=== PATIENT | male | born 1970 | race Caucasian/White ===

== ENCOUNTER → 2016-05-04 | Outpatient (CLI) | payer BC ==
--- NOTE | 2016-05-04 15:48 | DI ---
XR L-SPINE MIN 4 VW,05/04/2016 3:14 PM: Clinical History: Midline low back pain Previous Exam: October 18, 2015 Findings: AP, lateral, flexion and extension views of the lumbar spine are obtained, and demonstrate anatomic a lignment without fractures. There is no evidence of compression deformity. There is no loss of intervertebral disc height. There are no pathologic calcifications. A nonobstructive bowel gas pattern is seen. Impression: No fractures.
== END ==
LOC: MOB RAD 15:18
PROVIDERS: ATTEND Physician Assistant Medical
DX: M54.5 Low back pain (principal)
CPT/HCPCS: 72110

== ENCOUNTER 2017-02-15 11:25 | Inpatient (IN) ==
[2017-02-15] MEDS ORDERED: NORMAL SALINE 10 ML SYRINGE FLUSH IVP PRN (13:20)
[2017-02-15] MEDS ORDERED: ONDANSETRON 4 MG/2 ML VIAL IVP PRN (13:20)
[2017-02-15] MEDS ORDERED: CALCIUM CARBONATE 500 MG (TUMS) CHEWABLE TABLET PO PRN (13:20)
[2017-02-15] MEDS ORDERED: LIDOCAINE W/ SODIUM BICARB 0.5 ML SYR SUBD PRN (13:20)
[2017-02-15] MEDS ORDERED: Sodium Chloride 3% 500 ML PRIMARY IV SCH (13:30)
--- NOTE | 2017-02-15 13:46 | PDOC ---
HPI - History of Present Illness Date of Service: 02/15/17 Time of Service: 13:30 Chief Complaint: Dizziness, lightheadedness, increased leg swelling History of Present Illness: This is a 46 years old male with medical history significant for history of nephrotic syndrome, hypertension who presented to the clinic today for evaluation because of some lightheadedness and edema in his legs. He said he was diagnosed with nephrotic syndrome about 6 weeks ago. 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 his weight is less than what it was about 6 weeks ago. he went to see his physician a week ago they cut back on the dosage of the Lasix from 80 twice a day to 40 twice a day for the last 2 days he think his swelling was getting worse so he went back to 80 mg twice a day. he ss Having Some Lightheadedness and Dizziness but Denied Nausea or Vomiting. Has Some Salt Craving. He Admitted to Drinking Significant Amounts of Free Water but He Said He's Been Doing That for Years He Drinks May Be Sometimes he drinks 400 onuses of Water a day He Thinks He is Been Drinking Maybe like 150 - 200 Ounces of Water a Day the last two weeks. He was diagnosed on the and was put on Paxil. Lab studies on the clinic showed the sodium of 114 and hence the admission. Past Medical History Medical History: 1. Nephrotic syndrome, he said like he had a kidney biopsy about 4 weeks ago and the he thinks he had focal segmental glomerulosclerosis, they put him on high-dose steroid then. 2. Bipolar disorder, was more anxious about a week ago and they put him on Paxil on February 04. 3. Hypertension Surgical History: No surgeries before Pertinent Family History: Unknown he is adopted Past Social History: He doesn't smoke, doesn't drink, he did admits to using marijuana but he quits about 2 weeks ago Tobacco Use: Never Smoker In the Past 12 Months, Have Used or Abuse Any of the Following Substance: Marijuana Alcohol Use: None Medication / Allergies Home Medications: Home Medications Medication Instructions Recorded Confirmed Type furosemide 40 mg tablet 40 mg PO BID #60 tab 01/07/17 02/15/17 Rx lisinopril 10 mg tablet 40 mg PO BID #30 tab 02/04/17 02/15/17 Rx paroxetine ER 25 mg 25 mg PO QAM #30 tab 02/04/17 02/15/17 Rx tablet,extended release 24 hr Prednisone 60 mg PO DAILY 02/15/17 02/15/17 History Allergies/Adverse Reactions: Allergies 3 Allergy/AdvReac Type Severity Reaction Status Date / Time No Known Drug Allergies Allergy NOT Verified 02/15/17 13:46 APPLICABLE Review of Systems - Review of Systems All Systems: Reviewed & No Additional Complaints Except as Stated Exam - Vitals Vital Signs: Vital Signs Temperature 97.8 F Temperature Source Temporal Artery Scan Pulse Rate [Pulse Oximeter] 95 Respiratory Rate 20 Blood Pressure [Left Arm] 131/88 Pulse Ox 97 Oxygen Delivery Method Room Air Height 6 ft Weight 208 lb - General General Appearance: No Acute Distress, Cooperative - Head Head Exam: Normal Inspection, Atraumatic - Eye Eye Exam: POSITIVE: Normal Appearance - ENT ENT Exam: POSITIVE: Normal Exam - Neck Neck Exam: Normal Inspection - Respiratory Respiratory Exam: POSITIVE: Clear to Auscultation - Bilaterally - Cardiovascular Cardiovascular Exam: POSITIVE: RRR - GI/Abdominal GI/Abdominal Exam: POSITIVE: Normal Bowel Sounds, Non Tender, Non Distended, Soft, No Organomegaly Additional GI/Abdominal Exam Details: Soft nodule felt in the middle of the abdomen. About 2 cm nontender. He said he had it for more than 5 years and no change in in size. He was told this is a lymph node. - Rectal Rectal Exam: POSITIVE: Deferred - External Exam: POSITIVE: Deferred - Extremities Additional Extremities Exam Details: Bilateral leg edema noted up to the thigh - Back Back Exam: POSITIVE: Normal Inspection - Neurological Neurological Exam: POSITIVE: Alert, Oriented x 3, Normal Gait, CN II-XII Intact , No Facial Droop, Speech Intact / Clear, Moves All Extremities Equally - Psychiatric Psychiatric Exam: POSITIVE: Normal Affect - Integumentary Integumentary Exam: POSITIVE: Normal Color Results - Labs CBC and BMP: 02/15/17 14:14 Assessment and Plan - Patient Problems (1) Nephrotic syndrome Current Visit: No Status: Acute Comment: Continue the steroid continue the lisinopril. We'll hold on the Lasix for today. Code(s): N04.9 - Nephrotic syndrome with unspecified morphologic changes (2) Hyponatremia Current Visit: Yes Status: Acute Comment: He has severe hyponatremia. I would consider his symptoms are mild. he Has some lightheadedness. I think will use a hypertonic sodium will repeat his labs to ensure gradual rise in the sodium. hard to say whether this is acute or chronic but I suspect this may be related to the Paxil. We'll DC the Paxil. The other possibility is that his excessive intake of free water in the coupled with high dosage of the Lasix maybe that's also causing the hyponatremia. I think we'll hold the Lasix DC the Paxil give him hypertonic C saline and repeat the labs and will go from there. Code(s): E87.1 - Hypo-osmolality and hyponatremia
[2017-02-15 14:36] LABS: Hematocrit [HCT] 44.7 % (42.0-52.0); Hemoglobin [HGB] 15.6 g/dL (14.0-18.0); MEAN CORPUSCULAR VOLUME 91 FL (80-90); RED BLOOD COUNT 4.91 10^6/uL (4.70-6.10)
[2017-02-15 14:37] LABS: MEAN CORPUSCULAR HEMOGLOBIN 31.8 PG (27-31); MEAN PLATELET VOLUME 6.9 FL (7.4-12.2)
[2017-02-15 14:46] LABS: BASOPHILS # (AUTO) 0.02 10*3/UL; BASOPHILS % (AUTO) 0.2 % (0-1); EOSINOPHILS % (AUTO) 1.2 % (0-8); LYMPHOCYTES # (AUTO) 0.68 10*3/uL; MONOCYTES % (AUTO) 2.4 % (5-15); NEUTROPHILS # (AUTO) 7.25 10*3/UL; PLATELET MORPHOLOGY COMMENT NORMAL MORPHOLOGY (NORM); RBC MORPHOLOGY COMMENT NORMAL MORPHOLOGY (NORM); WBC MORPHOLOGY COMMENT NORMAL MORPHOLOGY (NORM)
[2017-02-15 17:22] LABS: BILIRUBIN,URINE NEGATIVE (NEG); CLARITY,URINE CLEAR (CLEAR); COLOR,URINE YELLOW; GLUCOSE, URINE (UA) NEGATIVE (NEG); NITRATE,URINE NEGATIVE (NEG); OCCULT BLOOD,URINE SMALL (NEG); PROTEIN,URINE >300 mg/dl (NEG); UROBILINOGEN,URINE 0.2 mg/dL (0.2)
[2017-02-15 17:30] LABS: URINE SAMPLE TYPE VOIDED SPECIMEN
[2017-02-15 17:31] LABS: WBC,URINE 0-3
[2017-02-15 18:10] LABS: BLOOD UREA NITROGEN 24 mg/dL (7-22)
[2017-02-15] MEDS: PANTOPRAZOLE 40 MG TABLET PO SCH (20:33)
[2017-02-15] MEDS ORDERED: LISINOPRIL 20 MG TABLET PO SCH (21:00)
[2017-02-15] MEDS ORDERED: LISINOPRIL 10 MG TABLET PO SCH (21:00)
[2017-02-15 22:05] LABS: BUN/CREATININE RATIO 21.53 (6-20)
[2017-02-16 01:56] LABS: BLOOD UREA NITROGEN 29 mg/dL (7-22); BUN/CREATININE RATIO 24.16 (6-20)
[2017-02-16] MEDS: D5W 1,000 ML PRIMARY IV SCH ×5 (02:20→23:22)
[2017-02-16 06:40] LABS: BLOOD UREA NITROGEN 29 mg/dL (7-22); BUN/CREATININE RATIO 26.36 (6-20)
[2017-02-16 06:41] LABS: SERUM ALBUMIN 1.7 g/dL (3.5-4.8)
[2017-02-16] MEDS: ACETAMINOPHEN 325 MG TABLET PO PRN (07:14)
--- NOTE | 2017-02-16 07:46 | PDOC(PROG) ---
Date and Time of Service: 02/16/2017 7:47 AM Interval History: Subjective Patient is complaining from backache he said he is uncomfortable with the bed. Otherwise the dizziness that he had is gone. Swelling in his legs is the same. Apparently he took his own medication today including the paroxetine. I did explain that the nurses give the medications when he is in the hospital rather than him taking the medication. He became upset and he said nobody told him about this. I did apologize for him and to reach a compromise with him as he doesn't want anybody o take his medications is that he will not take anymore medication without checking with his nurse. Objective : Data - Labs CBC and BMP: 02/15/17 14:14 02/16/17 06:13 Objective : Exam - General General Appearance: No Acute Distress, Cooperative - Head Head Exam: Normal Inspection - Eye Eye Exam: Normal Appearance - ENT ENT Exam: Normal Exam - Respiratory Respiratory Exam: Clear to Auscultation - Bilaterally - Cardiovascular Cardiovascular Exam: RRR - GI/Abdominal GI/Abdominal Exam: Normal Bowel Sounds, Non Tender, Non Distended, Soft, No Organomegaly - Rectal Rectal Exam: Deferred - External Exam: Deferred - Extremities Extremities Exam: +2 Edema - Back Back Exam: Normal Inspection - Neurological Neurological Exam: Alert, Oriented x 3, CN II-XII Intact, Speech Intact / Clear , Moves All Extremities Equally - Psychiatric Additional Psychiatric Exam Details: He became upset at one point when we told him that the nurses need to give him the medication rather than take his own medication but after talking to him he calmed down. He said though he wants to go home. - Integumentary Integumentary Exam: Normal Color Assessment and Plan - Patient Problems (1) Nephrotic syndrome Current Visit: No Status: Acute Comment: He is on lisinopril continue. We've held the Lasix because of the hyponatremia. I'll speak with his market researcher today. Code(s): N04.9 - Nephrotic syndrome with unspecified morphologic changes (2) Hyponatremia Current Visit: Yes Status: Acute Comment: We did raise the sodium gradually. Initially put him on 3% sodium and then at 2 AM night I thought the trajectory of the sodium rise was going fast and may exceed the 24-hour limits. So I DC'd the hypertonic sodium and switched to D5W and his sodium stabilized at 121 this morning and was 121 at 2 a.m. The [employer] system was down so I was not sure about his output in the middle the night. This morning the system is up in his the total output is 3400. I did tell him I'm thinking this may be secondary to overdiuresis if the sodium level in the urine measured yesterday was correct. Code(s): E87.1 - Hypo-osmolality and hyponatremia (3) Anxiety Current Visit: No Status: Acute Onset Date: 09/09/16 Comment: I think since the spot sodium in the urine is low this points to over diuresis as a reason for the low sodium. So I think he can continue with the paroxetine, but he said he may not be able to stay if we don't give him something additional so I wrote for Xanax 3 times a day when necessary and managed to convince him to stay in the hospital. Code(s): F41.9 - Anxiety disorder, unspecified
[2017-02-16] MEDS: PANTOPRAZOLE 40 MG TABLET PO SCH (08:00)
[2017-02-16] MEDS: LISINOPRIL 20 MG TABLET PO SCH ×3 (08:01→21:09)
[2017-02-16] MEDS: predniSONE Tab 20 MG TAB PO SCH (08:08)
[2017-02-16] MEDS: ENOXAPARIN SODIUM 40 MG/0.4 ML SYRINGE SUBCUT SCH (08:08)
[2017-02-16] MEDS: ALPRAZolam Tab 0.25 MG TABLET PO PRN ×3 (09:50→21:09)
[2017-02-16] MEDS: DEXLANSOPRAZOLE 60 MG PO SCH (09:55)
[2017-02-16 10:31] LABS: BLOOD UREA NITROGEN 28 mg/dL (7-22); BUN/CREATININE RATIO 25.45 (6-20)
[2017-02-16 13:27] LABS: BLOOD UREA NITROGEN 26 mg/dL (7-22)
[2017-02-16 16:55] LABS: BLOOD UREA NITROGEN 25 mg/dL (7-22); BUN/CREATININE RATIO 22.72 (6-20)
[2017-02-16 20:11] LABS: BLOOD UREA NITROGEN 22 mg/dL (7-22)
[2017-02-16 22:02] LABS: BLOOD UREA NITROGEN 22 mg/dL (7-22)
[2017-02-16] MEDS ORDERED: TEMAZEPAM 30 MG PO PRN (23:00)
[2017-02-17 01:12] LABS: BLOOD UREA NITROGEN 20 mg/dL (7-22); BUN/CREATININE RATIO 22.22 (6-20)
[2017-02-17] MEDS: D5W 1,000 ML PRIMARY IV SCH ×2 (02:47→06:45)
[2017-02-17] MEDS: ACETAMINOPHEN 325 MG TABLET PO PRN (02:54)
[2017-02-17] MEDS: ALPRAZolam Tab 0.25 MG TABLET PO PRN (03:31)
[2017-02-17 03:43] LABS: BLOOD UREA NITROGEN 19 mg/dL (7-22); BUN/CREATININE RATIO 17.27 (6-20)
[2017-02-17] MEDS ORDERED: LORazepam 1 MG TABLET PO PRN (04:07)
[2017-02-17 06:27] LABS: BLOOD UREA NITROGEN 19 mg/dL (7-22)
[2017-02-17 07:45] VITALS: BP 159/100; RESP 20; TEMP 98.3; O2SAT 97
[2017-02-17] MEDS: LISINOPRIL 20 MG TABLET PO SCH (07:45)
[2017-02-17] MEDS: ENOXAPARIN SODIUM 40 MG/0.4 ML SYRINGE SUBCUT SCH (07:45)
[2017-02-17] MEDS: DEXLANSOPRAZOLE 60 MG PO SCH (07:45)
[2017-02-17] MEDS: predniSONE Tab 20 MG TAB PO SCH (08:34)
[2017-02-17 09:32] LABS: BLOOD UREA NITROGEN 17 mg/dL (7-22)
--- NOTE | 2017-02-17 09:57 | DCSUMMARY ---
Hospitalization Summary Admit Date: 02/15/2017 Discharge Date: 02/17/17 Hospital Course: Discharge diagnoses 1. Hyponatremia looks like secondary to overdiuresis 2. Nephrotic syndrome 3. History of bipolar disorder/anxiety 4. History of marijuana abuse Hospital course This is a 46 years old male with medical history significant for history of nephrotic syndrome, hypertension who presented to the clinic on the and he did report lightheadedness and edema in his legs. He was diagnosed with the nephrotic syndrome 6 weeks before this admission. He thinks his symptoms started maybe about 6 weeks ago with leg swelling and scrotal edema he went to urgent clinic was put on Lasix and potassium then he followed up with the nephrology in [place] where he was diagnosed with nephrotic syndrome he had a biopsy done about 4 weeks ago he thought that he had a diagnoses of focal segmental glomerulosclerosis he was put on high-dose steroids 60 mg a day, he was also put on lisinopril for his high blood pressure. 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 He thought that his swelling got worse 2 days prior to admission so he took 80 mg twice a day of the Lasix. He is having dizziness and lightheadedness but denied nausea, vomiting has some craving for salt. He did admit to drinking significant amounts of free water and this been going on for years. He think he is been drinking maybe 150-200 ounces of water a day the last 2 weeks. Before that he drinks up to 400 ounces of water a day . On the was diagnosed with anxiety and was put on the paroxetine. His lab test on the day of admission showed a sodium of 114 and hence the admission. His exam was remarkable for edema in his legs. Patient initially was started on hypertonic saline with the plan to raise his the sodium gradually. At 2 AM on the his sodium was 121 so we thought maybe the trajectory of the correction was fast so we started putting him on D5 water and DC the hypertonic saline. We did frequent measurements of his the sodium level and we adjusted the D5 water infusion rate depending on his level. I did not use a DDAVP because of his excessive water intake. So we use only D5 to lower the trajectory of the rise in sodium. On the at 9 AM his sodium was 127. Patient's being very difficult throughout his hospital stay, complaining from anxiety, for which we started him on Xanax, he was also complaining about the way staff treating him , was complaining about his sleep was complaining also about call light because the nursing staff were putting it next to him and he wanted to be on the floor. He claims that his anxiety is a result of him being in the hospital didn't want to stay longer here in the hospital. Since his symptoms resolved I thought will accept the level of 127 and discharge him home because he said if we need to keep him we have to sedate him and he says the medication we are giving him on are not helping. We thought it best to to discharge him home and I think the sodium likely will auto corrects. The reason for his hyponatremia I think based on the sodium in the urine of less than 5 suggest that this is the result of excessive diuresis. So we have been holding his Lasix and we did tell him to hold his Lasix on the day of discharge and have another chemistry the next day on the and depending on that will will decide about when to restart his lasix. His exam on the day of discharge was remarkable for him claiming to be anxious, he was argumentative, there was edema in his lower part of the leg but I think it's improved compared to what it was. we thought the best course of action is to discharge him and repeat his chemistry tomorrow. I did suggest dietary consultation to see whether that would help with the low sodium diet. I think he is maybe excessively restricting his sodium. However he declined to see the dietitian today. He just wanted to leave. Laboratory Results 02/15/17 02/16/17 02/16/17 Range/Units 17:14 16:30 19:53 Sodium 126 L 126 L (135-145) meq/L Potassium 5.5 H 4.6 (3.8-5.2) meq/L Chloride 95 L 97 L (98-112) meq/L Carbon Dioxide 31 27 (23-33) meq/L Anion Gap 0 L 2 L (5-20) BUN 25 H 22 (7-22) mg/dL Creatinine 1.1 1.1 (0.70-1.50) mg/dL Estimated GFR > 60 > 60 (>60 ml/min/1.73m(2)) BUN/Creatinine Ratio 22.72 H 20.00 (6-20) Glucose 142 H 107 (78-110) mg/dL Calculated Osmolality 267.0 264.0 L (267-292) mOsm/kg Calcium 8.3 L 7.9 L (8.7-10.7) mg/dL Ur Random Osmolality 266 (150 - 1150) mOsm/kg 02/16/17 02/17/17 02/17/17 Range/Units 21:51 00:53 03:30 Sodium 124 L 126 L 127 L (135-145) meq/L Potassium 4.3 4.0 4.3 (3.8-5.2) meq/L Chloride 96 L 96 L 96 L (98-112) meq/L Carbon Dioxide 29 30 27 (23-33) meq/L Anion Gap -1 L 0 L 4 L (5-20) BUN 22 20 19 (7-22) mg/dL Creatinine 1.0 0.9 1.1 (0.70-1.50) mg/dL Estimated GFR > 60 > 60 > 60 (>60 ml/min/1.73m(2)) BUN/Creatinine Ratio 22.00 H 22.22 H 17.27 (6-20) Glucose 113 H 116 H 87 (78-110) mg/dL Calculated Osmolality 261.0 L 265.0 L 264.0 L (267-292) mOsm/kg Calcium 7.9 L 7.8 L 8.3 L (8.7-10.7) mg/dL Ur Random Osmolality (150 - 1150) mOsm/kg 02/17/17 02/17/17 Range/Units 05:54 09:04 Sodium 126 L 127 L (135-145) meq/L Potassium 3.9 3.8 (3.8-5.2) meq/L Chloride 95 L 94 L (98-112) meq/L Carbon Dioxide 33 28 (23-33) meq/L Anion Gap -2 L 5 (5-20) BUN 19 17 (7-22) mg/dL Creatinine 1.0 1.0 (0.70-1.50) mg/dL Estimated GFR > 60 > 60 (>60 ml/min/1.73m(2)) BUN/Creatinine Ratio 19.00 17.00 (6-20) Glucose 89 126 H (78-110) mg/dL Calculated Osmolality 262.0 L 267.0 (267-292) mOsm/kg Calcium 7.7 L 8.3 L (8.7-10.7) mg/dL Ur Random Osmolality (150 - 1150) mOsm/kg Discharge instruction Diet low-salt Activity as tolerated Medications Current Medication(s) 3 Medication Instructions Recorded Confirmed Type furosemide 40 mg tablet 40 mg PO BID #60 tab 01/07/17 02/15/17 Rx lisinopril 10 mg tablet 40 mg PO BID #30 tab 02/04/17 02/15/17 Rx paroxetine ER 25 mg 25 mg PO QAM #30 tab 02/04/17 02/15/17 Rx tablet,extended release 24 hr Prednisone 60 mg PO DAILY 02/15/17 02/15/17 History Temazepam 30 mg PO DAILY PRN 02/16/17 02/16/17 History Follow-up with PCP in 1-2 weeks, with the nephrology in 1-2 weeks, need the chemistry on the Condition at discharge was stable for discharge Exam - Vitals Vital Signs: Vital Signs Temperature 98.3 F Temperature Source Temporal Artery Scan Pulse Rate [Apical] 110 Pulse Rate [Pulse Oximeter] 92 Respiratory Rate 20 Blood Pressure [Left Arm] 159/100 Pulse Ox 97 Oxygen Delivery Method Room Air Height 6 ft Weight 198 lb 3.2 oz - General Additional General Exam Details: Anxious, upset - Head Head Exam: Normal Inspection - Eye Eye Exam: POSITIVE: Normal Appearance - ENT ENT Exam: POSITIVE: Normal Exam - Neck Neck Exam: Normal Inspection - Respiratory Respiratory Exam: POSITIVE: Clear to Auscultation - Bilaterally - Cardiovascular Cardiovascular Exam: POSITIVE: RRR - GI/Abdominal GI/Abdominal Exam: POSITIVE: Normal Bowel Sounds, Non Tender, Non Distended, Soft, No Organomegaly - Rectal Rectal Exam: POSITIVE: Deferred - External Exam: POSITIVE: Deferred - Extremities Additional Extremities Exam Details: Edema to me looks less than what it was when he came in. Although he says that his shaking, the hand movement seems to be voluntary. - Back Back Exam: POSITIVE: Normal Inspection - Neurological Neurological Exam: POSITIVE: Alert, Oriented x 3, CN II-XII Intact, No Facial Droop, Speech Intact / Clear, Moves All Extremities Equally - Psychiatric Psychiatric Exam: POSITIVE: Anxious - Integumentary Integumentary Exam: POSITIVE: Normal Color Patient Problems - Patient Problem List (1) Nephrotic syndrome Status: Acute Code(s): N04.9 - Nephrotic syndrome with unspecified morphologic changes Category: Medical (2) Hyponatremia Status: Acute Code(s): E87.1 - Hypo-osmolality and hyponatremia Category: Medical (3) Anxiety Status: Acute Onset Date: 09/09/16 Code(s): F41.9 - Anxiety disorder, unspecified Category: Medical
== END 2017-02-17 10:05 | disposition home or self-care (01) | DRG 641 ==
LOC: MED/SURG 12:14
PROVIDERS: ADMIT Internal Medicine; ATTEND Internal Medicine